=== PATIENT | male | born 1965 | race Caucasian/White ===

== ENCOUNTER → 2016-04-20 | Outpatient (CLI) | payer MEDICARE, MEDICAID ==
[2016-04-20 13:53] LABS: BASO % 0.5 % (0.0-1.0); EOS # 0.1 K/mm3 (0.0-0.50); EOS % 1.7 % (0.0-3.0); LARGE UNSTAINED CELL # 0.1 K/mm3 (0.0-0.4); LARGE UNSTAINED CELL % 1.9 % (0.0-4.0); LYMPH # 1.9 K/mm3 (1.5-4.5); LYMPH % 28.7 % (24.0-44.0); MEAN CORPUSCULAR HEMOGLOBIN 32.5 pg (27.0-33.0); MEAN CORPUSCULAR HGB CONC 33.7 g/dl (32.0-36.5); MEAN CORPUSCULAR VOLUME 96.4 fl (80.0-96.0); MONO # 0.5 K/mm3 (0.0-0.8); MONO % 7.4 % (0.0-5.0); NEUTROPHILS % 59.8 % (36.0-66.0); PLATELET COUNT, AUTOMATED 199 k/mm3 (150-450); RED CELL DISTRIBUTION WIDTH 12.6 % (11.5-14.5); WHITE BLOOD COUNT 6.7 K/mm3 (4.0-10.0)
[2016-04-20 14:11] LABS: ALBUMIN 3.6 GM/DL (3.2-5.2); ALBUMIN/GLOBULIN RATIO 1.06 (1.00-1.93); ALKALINE PHOSPHATASE 63 U/L (45-117); ALT/SGPT 14 U/L (12-78); ANION GAP 7 MEQ/L (8-16); AST/SGOT 10 U/L (15-37); BILIRUBIN,TOTAL 0.3 MG/DL (0.2-1.0); BLOOD UREA NITROGEN 15 MG/DL (7-18); CALCIUM LEVEL 8.9 MG/DL (8.5-10.1); CARBON DIOXIDE LEVEL 31 MEQ/L (21-32); CHLORIDE LEVEL 99 MEQ/L (98-107); CHOLESTEROL LEVEL 133 MG/DL (<200); CREATININE FOR GFR 0.89 MG/DL (0.70-1.30); GLOMERULAR FILTRATION RATE > 60.0 (>56); GLUCOSE, FASTING 83 MG/DL (70-105); POTASSIUM SERUM 4.7 MEQ/L (3.5-5.1); SODIUM LEVEL 137 MEQ/L (136-145); TRIGLYCERIDES LEVEL 66 MG/DL (<150)
== END | disposition home or self-care (01) ==
LOC: M WUC 08:42
PROVIDERS: ATTEND Physician Assistant
DX: D53.9 Nutritional anemia, unspecified (principal); D70.9 Neutropenia, unspecified; E78.2 Mixed hyperlipidemia; E03.9 Hypothyroidism, unspecified; E55.9 Vitamin D deficiency, unspecified

== ENCOUNTER → 2016-06-04 | Outpatient (CLI) | payer MEDICARE, MEDICAID ==
[2016-06-04 18:19] LABS: ALBUMIN 3.5 GM/DL (3.2-5.2); ALBUMIN/GLOBULIN RATIO 1.06 (1.00-1.93); ALKALINE PHOSPHATASE 49 U/L (45-117); ALT/SGPT 10 U/L (12-78); AST/SGOT 11 U/L (15-37); BILIRUBIN,DIRECT < 0.1 MG/DL (0.0-0.2); BILIRUBIN,TOTAL 0.3 MG/DL (0.2-1.0); TOTAL PROTEIN 6.8 GM/DL (6.4-8.2)
== END ==
LOC: M WUC 09:06
PROVIDERS: ATTEND Psychiatry & Neurology Psychiatry
DX: Z51.81 Encounter for therapeutic drug level monitoring (principal); Z79.899 Other long term (current) drug therapy

== ENCOUNTER → 2016-06-11 | Outpatient (CLI) | payer MEDICARE, MEDICAID | LOC: M WUC 08:21 | PROVIDERS: ATTEND Psychiatry & Neurology Psychiatry | DX: Z51.81 Encounter for therapeutic drug level monitoring (principal); Z79.899 Other long term (current) drug therapy ==

== ENCOUNTER → 2016-06-30 | Outpatient (CLI) | payer MEDICARE, MEDICAID | LOC: M WUC 08:27 | PROVIDERS: ATTEND Psychiatry & Neurology Psychiatry | DX: Z51.81 Encounter for therapeutic drug level monitoring (principal); Z79.899 Other long term (current) drug therapy ==

== ENCOUNTER 2017-02-07 18:43 | Emergency (ER) | payer MEDICARE, MEDICAID ==
[~2017-02-07] VITALS: Ht 170.2 cm; Wt 69.1 kg
[2017-02-07] MEDS ORDERED: DIVA500T3 (18:50)
[2017-02-07] MEDS ORDERED: LEVO25TA5 (18:50)
[2017-02-07] MEDS ORDERED: VITA100067 PO (18:50)
[2017-02-07] MEDS ORDERED: BENZ0.5T (18:50)
[2017-02-07] MEDS ORDERED: HALO1TAB29 (18:50)
[2017-02-07] MEDS ORDERED: OXYB5TAB10 (18:50)
[2017-02-07] MEDS ORDERED: FERR325T3 PO (18:50)
[2017-02-07] MEDS ORDERED: SIMV40TA2 (18:50)
[2017-02-07 20:56] LABS: BASO % 0.5 % (0.0-1.0); EOS # 0.1 10^3/uL (0.0-0.50); EOS % 1.5 % (0.0-3.0); IMMATURE GRANULOCYTE % 0.5 % (0-0); LYMPH # 3.2 10^3/uL (1.5-4.5); LYMPH % 37.2 % (24.0-44.0); MEAN CORPUSCULAR HEMOGLOBIN 31.7 pg (27.0-33.0); MEAN CORPUSCULAR VOLUME 93.4 fl (80.0-96.0); MONO % 11.2 % (0.0-5.0); NEUTROPHILS # 4.3 10^3/uL (1.8-7.7); NEUTROPHILS % 49.1 % (36.0-66.0); PLATELET COUNT, AUTOMATED 240 10^3/uL (150-450); RED CELL DISTRIBUTION WIDTH 13.8 % (11.5-14.5); WHITE BLOOD COUNT 8.7 10^3/uL (4.0-10.0)
[2017-02-07 20:59] LABS: SPECIFIC GRAVITY UR AUTO RFX 1.005 (1.002-1.035); SQUAM EPITHELIAL CELL UR AURFX 0 /HPF (0-6)
[2017-02-07 21:14] LABS: ANION GAP 7 MEQ/L (8-16); BLOOD UREA NITROGEN 8 MG/DL (7-18); CALCIUM LEVEL 8.9 MG/DL (8.5-10.1); CARBON DIOXIDE LEVEL 32 MEQ/L (21-32); CHLORIDE LEVEL 97 MEQ/L (98-107); CREATININE FOR GFR 0.84 MG/DL (0.70-1.30); GLOMERULAR FILTRATION RATE > 60.0 (>56); GLUCOSE, FASTING 76 MG/DL (70-105); POTASSIUM SERUM 4.4 MEQ/L (3.5-5.1); SODIUM LEVEL 136 MEQ/L (136-145)
[2017-02-07] MEDS ORDERED: NYST1POW9 TOP (21:36)
[2017-02-07 21:43] VITALS: BP 112/69
--- NOTE | 2017-02-07 21:50 | REPUSA ---
HISTORY: Right hydrocele. COMPARISON: No relevant comparison is available at the time of interpretation. TECHNIQUE: Ultrasound of the bilateral testicles and scrotum was performed. Doppler color flow was pe rformed to evaluate testicular vascularity. SCROTAL ULTRASOUND: Right testicle: 4.5 x 2.1 x 3.0 cm. Normal vascular flow, resistive index 0.53. Small epididymal cyst s. Large right hydrocele. No varicocele. Small calcification of the upper testicular pole may represe nt appendix testis. Left testicle: 4.3 x 2.3 x 2.5 cm. Normal vascular flow, resistive index 0.42. Small epididymal cysts . No hydrocele or varicocele. IMPRESSION: Large right hydrocele.
== END 2017-02-07 21:44 | disposition home or self-care (01) ==
LOC: M ED 18:43
DX: B35.6 Tinea cruris (principal); N43.3 Hydrocele, unspecified; I10 Essential (primary) hypertension; E07.9 Disorder of thyroid, unspecified; F99 Mental disorder, not otherwise specified; Z86.79 Personal history of other diseases of the circulatory system; Z79.899 Other long term (current) drug therapy

== ENCOUNTER → 2017-02-20 | Outpatient (CLI) | payer MEDICARE, MEDICAID ==
[~2017-02-20] MED LIST: BENZ0.5T; DIVA500T3; FERR325T3 PO; HALO1TAB29; LEVO25TA5; NYST1POW9 TOP; OXYB5TAB10; SIMV40TA2; VITA100067 PO
[2017-02-20 09:36] LABS: ALBUMIN 3.5 GM/DL (3.2-5.2); ALBUMIN/GLOBULIN RATIO 1.09 (1.00-1.93); BILIRUBIN,DIRECT 0.1 MG/DL (0.0-0.2); BILIRUBIN,TOTAL 0.3 MG/DL (0.2-1.0); TOTAL PROTEIN 6.7 GM/DL (6.4-8.2)
== END ==
LOC: M WUC 08:05
PROVIDERS: ATTEND Psychiatry & Neurology Psychiatry
DX: Z51.81 Encounter for therapeutic drug level monitoring (principal); Z79.899 Other long term (current) drug therapy

== ENCOUNTER → 2017-03-15 | Outpatient (CLI) | payer MEDICARE, MEDICAID ==
[2017-03-15 08:49] LABS: VALPROIC ACID (DEPAKOTE) 92.5 UG/ML (50.0-100.0)
== END ==
LOC: M LAB 07:23
DX: Z79.899 Other long term (current) drug therapy (principal)
CPT/HCPCS: 80164

== ENCOUNTER → 2017-04-04 | Outpatient (CLI) | payer MEDICARE, MEDICAID ==
[2017-04-04 13:17] LABS: VALPROIC ACID (DEPAKOTE) 86.3 UG/ML (50.0-100.0)
== END ==
LOC: M WUC 08:29
DX: Z79.899 Other long term (current) drug therapy (principal)
CPT/HCPCS: 80164

== ENCOUNTER → 2017-07-25 | Outpatient (CLI) | payer MEDICARE, MEDICAID | LOC: M LRY 14:07 | DX: R05 Cough (principal); F25.9 Schizoaffective disorder, unspecified; R25.9 Unspecified abnormal involuntary movements; Z12.11 Encounter for screening for malignant neoplasm of colon; Z79.899 Other long term (current) drug therapy | CPT/HCPCS: 71046; 83036 ==

== ENCOUNTER → 2017-07-25 | Outpatient (REF) | payer MEDICARE, MEDICAID ==
[2017-07-25 19:10] LABS: ESTIMATED AVERAGE GLUCOSE 108 MG/DL (60-110); HEMOGLOBIN A1c 5.4 %
== END ==
LOC: M SFHCLERA 13:56
DX: F25.9 Schizoaffective disorder, unspecified (principal); R05 Cough; Z12.11 Encounter for screening for malignant neoplasm of colon; Z79.899 Other long term (current) drug therapy
CPT/HCPCS: 83036

== ENCOUNTER → 2017-08-18 | Outpatient (CLI) | payer MEDICARE, MEDICAID | LOC: M WUC 17:08 | DX: M16.12 Unilateral primary osteoarthritis, left hip (principal); M25.552 Pain in left hip | CPT/HCPCS: 73502 ==

== ENCOUNTER 2017-08-30 21:51 | Emergency (ER) | payer MEDICARE, MEDICAID | END 2017-08-30 22:37 | disposition home or self-care (01) | LOC: M ED 21:51 | DX: F43.0 Acute stress reaction (principal); F41.1 Generalized anxiety disorder; F79 Unspecified intellectual disabilities; E78.00 Pure hypercholesterolemia, unspecified; Z72.0 Tobacco use; Z79.899 Other long term (current) drug therapy | CPT/HCPCS: 99284 ==

== ENCOUNTER → 2017-09-01 | Outpatient (CLI) | payer MEDICARE, MEDICAID ==
[2017-09-01 17:48] LABS: PLATELET COUNT, AUTOMATED 260 10^3/uL (150-450)
[2017-09-01 18:06] LABS: ALBUMIN 3.6 GM/DL (3.2-5.2); ALBUMIN/GLOBULIN RATIO 1.13 (1.00-1.93); ALKALINE PHOSPHATASE 52 U/L (45-117); ALT/SGPT 17 U/L (12-78); AST/SGOT 8 U/L (7-37); BILIRUBIN,DIRECT < 0.1 MG/DL (0.0-0.2); BILIRUBIN,TOTAL 0.2 MG/DL (0.2-1.0); TOTAL PROTEIN 6.8 GM/DL (6.4-8.2); VALPROIC ACID (DEPAKOTE) 78.1 UG/ML (50.0-100.0)
== END ==
LOC: M WUC 08:50
DX: Z51.81 Encounter for therapeutic drug level monitoring (principal)
CPT/HCPCS: 80164

== ENCOUNTER → 2017-09-04 | Outpatient (CLI) | payer MEDICARE, MEDICAID ==
[2017-09-05 11:14] LABS: TOTAL 25(OH) VITAMIN D 26.1 NG/ML (30.0-100.0)
== END ==
LOC: M WUC 15:43
DX: E55.9 Vitamin D deficiency, unspecified (principal); Z79.899 Other long term (current) drug therapy
CPT/HCPCS: 82306

== ENCOUNTER 2017-09-15 19:34 | Inpatient (IN) | payer MEDICARE, MEDICAID ==
[2017-09-15 20:49] LABS: HEMATOCRIT 40.6 % (42.0-52.0); MEAN CORPUSCULAR HEMOGLOBIN 32.1 pg (27.0-33.0); MEAN CORPUSCULAR HGB CONC 34.5 g/dl (32.0-36.5); MEAN CORPUSCULAR VOLUME 93.1 fl (80.0-96.0); PLATELET COUNT, AUTOMATED 244 10^3/uL (150-450); RED BLOOD COUNT 4.36 10^6/uL (4.30-6.10); RED CELL DISTRIBUTION WIDTH 13.4 % (11.5-14.5)
[2017-09-15 20:51] LABS: AMPHETAMINES LEVEL URINE NEGATIVE (NEGATIVE); BARBITURATES URINE NEGATIVE (NEGATIVE); BENZODIAZEPINES URINE NEGATIVE (NEGATIVE); CANNABINOIDS URINE NEGATIVE (NEGATIVE); COCAINE METABOLITE URINE NEGATIVE (NEGATIVE); METHADONE URINE NEGATIVE (NEGATIVE); OPIATES URINE NEGATIVE (NEGATIVE); PHENCYCLIDINE URINE NEGATIVE (NEGATIVE)
[2017-09-15] MEDS: oxyBUTYnin 5 MG TAB PO (21:00)
[2017-09-15] MEDS: SIMVASTATIN 40 MG TAB PO (21:00)
[2017-09-15] MEDS ORDERED: DIVALPROEX 500 MG TAB PO (21:00)
[2017-09-15] MEDS: NICOTINE 21MG/24HR 1 EA TRANSDERMAL TD (21:00)
[2017-09-15] MEDS ORDERED: DOCUSATE SODIUM 100 MG CAP PO (21:00)
[2017-09-15] MEDS ORDERED: HALOPERIDOL 10 MG TAB PO (21:00)
[2017-09-15 21:25] LABS: ALBUMIN 3.5 GM/DL (3.2-5.2); ALBUMIN/GLOBULIN RATIO 1.03 (1.00-1.93); ALKALINE PHOSPHATASE 62 U/L (45-117); ALT/SGPT 18 U/L (12-78); ANION GAP 8 MEQ/L (8-16); AST/SGOT 14 U/L (7-37); BILIRUBIN,DIRECT < 0.1 MG/DL (0.0-0.2); BILIRUBIN,TOTAL 0.2 MG/DL (0.2-1.0); BLOOD UREA NITROGEN 13 MG/DL (7-18); CARBON DIOXIDE LEVEL 27 MEQ/L (21-32); CHLORIDE LEVEL 105 MEQ/L (98-107); CREATININE FOR GFR 0.86 MG/DL (0.70-1.30); GLOMERULAR FILTRATION RATE > 60.0 (>56); GLUCOSE, FASTING 144 MG/DL (70-100); POTASSIUM SERUM 4.6 MEQ/L (3.5-5.1); SALICYLATE LEVEL 1.9 MG/DL (5.0-30.0); SODIUM LEVEL 140 MEQ/L (136-145); TOTAL PROTEIN 6.9 GM/DL (6.4-8.2)
[2017-09-15 21:26] LABS: ACETAMINOPHEN LEVEL < 2.0 UG/ML (10.0-30.0); ETHYL ALCOHOL (ETHANOL) < 0.003 % (0.000-0.010)
[2017-09-15] MEDS ORDERED: MOM 30ML SUSPENSION UDC PO (22:30)
[2017-09-15] MEDS: ACETAMINOPHEN TAB 650MG DOSE (2X325MG) PO (23:33)
[2017-09-16] MEDS: LORazepam 1 MG TAB PO ×3 (00:58→15:49)
[2017-09-16] MEDS: DOCUSATE SODIUM 100 MG CAP PO ×3 (01:00→20:16)
[2017-09-16] MEDS: DIVALPROEX 500 MG TAB PO ×3 (01:09→20:16)
[2017-09-16] MEDS: HALOPERIDOL 10 MG TAB PO ×3 (01:09→20:16)
[2017-09-16] MEDS: LEVOTHYROXINE 25MCG TABLET (0.025MG) PO (06:19)
[2017-09-16] MEDS: BENZTROPINE 0.5 MG TAB PO (09:06)
[2017-09-16] MEDS: FERROUS SULFATE 325MG TAB PO (09:06)
[2017-09-16] MEDS: oxyBUTYnin 5 MG TAB PO ×3 (09:06→20:16)
[2017-09-16] MEDS: traZODone 50 MG TAB PO (20:16)
[2017-09-16] MEDS: SIMVASTATIN 40 MG TAB PO (20:16)
[2017-09-16] MEDS: NICOTINE 21MG/24HR 1 EA TRANSDERMAL TD (20:17)
[2017-09-17] MEDS: LEVOTHYROXINE 25MCG TABLET (0.025MG) PO (06:20)
[2017-09-17] MEDS: LORazepam 1 MG TAB PO ×3 (08:29→15:49)
[2017-09-17] MEDS: oxyBUTYnin 5 MG TAB PO ×3 (08:29→20:20)
[2017-09-17] MEDS: DOCUSATE SODIUM 100 MG CAP PO ×2 (08:29→20:20)
[2017-09-17] MEDS: BENZTROPINE 0.5 MG TAB PO (08:29)
[2017-09-17] MEDS: FERROUS SULFATE 325MG TAB PO (08:29)
[2017-09-17] MEDS: DIVALPROEX 500 MG TAB PO ×2 (08:29→20:20)
[2017-09-17] MEDS: HALOPERIDOL 10 MG TAB PO ×2 (08:29→20:20)
[2017-09-17] MEDS: ACETAMINOPHEN TAB 650MG DOSE (2X325MG) PO (12:34)
[2017-09-17] MEDS: SIMVASTATIN 40 MG TAB PO (20:20)
[2017-09-17] MEDS: NICOTINE 21MG/24HR 1 EA TRANSDERMAL TD (20:21)
[2017-09-17] MEDS: MAALOX 30 ML SUSP *UDC PO (20:44)
[2017-09-18] MEDS: LEVOTHYROXINE 25MCG TABLET (0.025MG) PO (06:21)
[2017-09-18] MEDS: DOCUSATE SODIUM 100 MG CAP PO (08:11)
[2017-09-18] MEDS: HALOPERIDOL 10 MG TAB PO (08:11)
[2017-09-18] MEDS: LORazepam 1 MG TAB PO ×2 (08:12)
[2017-09-18] MEDS: BENZTROPINE 0.5 MG TAB PO (08:12)
[2017-09-18] MEDS: oxyBUTYnin 5 MG TAB PO (08:12)
[2017-09-18] MEDS: DIVALPROEX 500 MG TAB PO (08:12)
[2017-09-18] MEDS: FERROUS SULFATE 325MG TAB PO (08:12)
[2017-09-18] MEDS ORDERED: LORazepam 1 MG TAB PO (16:00)
== END 2017-09-18 14:15 | disposition home or self-care (01) | DRG 885 ==
LOC: M ED 19:34 → M ED INP 21:59 → M PSY 22:47
DX: F25.9 Schizoaffective disorder, unspecified (principal); I10 Essential (primary) hypertension; G43.909 Migraine, unspecified, not intractable, without status migrainosus; E03.9 Hypothyroidism, unspecified; H91.93 Unspecified hearing loss, bilateral; F70 Mild intellectual disabilities; E78.5 Hyperlipidemia, unspecified; N43.3 Hydrocele, unspecified; R32 Unspecified urinary incontinence; H26.9 Unspecified cataract; R45.850 Homicidal ideations; Z68.29 Body mass index [BMI] 29.0-29.9, adult; E66.3 Overweight; E55.9 Vitamin D deficiency, unspecified; M70.71 Other bursitis of hip, right hip; D53.9 Nutritional anemia, unspecified; L21.9 Seborrheic dermatitis, unspecified; F17.210 Nicotine dependence, cigarettes, uncomplicated; Z79.899 Other long term (current) drug therapy

== ENCOUNTER 2017-12-20 21:50 | Emergency (ER) | payer MEDICARE, MEDICAID ==
[2017-12-20] MEDS: NORCO, ANEXSIA 5/325MG TABLET (HYDROcodone/ACETAMINOPHEN) PO ×2 (22:16)
== END 2017-12-20 23:30 | disposition home or self-care (01) ==
LOC: M ED 21:50
DX: M79.605 Pain in left leg (principal); E78.70 Disorder of bile acid and cholesterol metabolism, unspecified; E07.9 Disorder of thyroid, unspecified; F17.210 Nicotine dependence, cigarettes, uncomplicated; Z98.890 Other specified postprocedural states
CPT/HCPCS: 73590

== ENCOUNTER → 2018-01-23 | Outpatient (REF) | payer MEDICARE, MEDICAID ==
[2018-01-23 16:46] LABS: HEMATOCRIT 42.3 % (42.0-52.0); HEMOGLOBIN 13.6 g/dl (13.5-17.5); MEAN CORPUSCULAR HEMOGLOBIN 28.6 pg (27.0-33.0); MEAN CORPUSCULAR HGB CONC 32.2 g/dl (32.0-36.5); MEAN CORPUSCULAR VOLUME 88.9 fl (80.0-96.0); PLATELET COUNT, AUTOMATED 396 10^3/uL (150-450); RED BLOOD COUNT 4.76 10^6/uL (4.30-6.10); RED CELL DISTRIBUTION WIDTH 14.7 % (11.5-14.5); WHITE BLOOD COUNT 11.2 10^3/uL (4.0-10.0)
[2018-01-23 16:47] LABS: VALPROIC ACID (DEPAKOTE) 107.3 UG/ML (50.0-100.0)
[2018-01-23 16:58] LABS: ALBUMIN 3.8 GM/DL (3.2-5.2); ALKALINE PHOSPHATASE 72 U/L (45-117); ALT/SGPT 17 U/L (12-78); ANION GAP 7 MEQ/L (8-16); AST/SGOT 10 U/L (7-37); BILIRUBIN,TOTAL 0.2 MG/DL (0.2-1.0); BLOOD UREA NITROGEN 10 MG/DL (7-18); CALCIUM LEVEL 9.1 MG/DL (8.5-10.1); CARBON DIOXIDE LEVEL 27 MEQ/L (21-32); CHLORIDE LEVEL 101 MEQ/L (98-107); CHOLESTEROL LEVEL 146 MG/DL (<200); CHOLESTEROL RISK RATIO 2.654 (<5); CREATININE FOR GFR 0.65 MG/DL (0.70-1.30); GLOMERULAR FILTRATION RATE > 60.0 (>56); GLUCOSE, FASTING 89 MG/DL (70-100); HDL CHOLESTEROL 55 MG/DL (>40); LDL CHOLESTEROL 71 MG/DL (<100); NON-HDL-C 91 MG/DL; SODIUM LEVEL 135 MEQ/L (136-145); TOTAL PROTEIN 7.6 GM/DL (6.4-8.2); TRIGLYCERIDES LEVEL 98 MG/DL (<150)
== END ==
LOC: M SFHCLERA 11:49
DX: E03.9 Hypothyroidism, unspecified (principal); E78.5 Hyperlipidemia, unspecified; F25.9 Schizoaffective disorder, unspecified
CPT/HCPCS: 84443

== ENCOUNTER → 2018-02-19 | Outpatient (CLI) | payer MEDICARE, MEDICAID ==
[2018-02-19 19:36] LABS: VALPROIC ACID (DEPAKOTE) 82.2 UG/ML (50.0-100.0)
== END ==
LOC: M WUC 17:37
DX: Z79.899 Other long term (current) drug therapy (principal)
CPT/HCPCS: 80164

== ENCOUNTER → 2018-04-10 | Outpatient (CLI) | payer MEDICARE, MEDICAID ==
[~2018-04-10] MED LIST changes: +ATIV1TAB7 PO; -BENZ0.5T; +BENZ0.5T PO; +COLA100C5 PO; -DIVA500T3; +DIVA500T94 PO; -HALO1TAB29; +HALO1TAB29 PO; -LEVO25TA5; +LEVO25TA5 PO; +NICO21PAT TD; -OXYB5TAB10; +OXYB5TAB10 PO; +PROHANCE 279.3MG/ML 15ML VIAL (A9576) As Ordered ONE; -SIMV40TA2; +SIMV40TA2 PO; +VITA1CAP25 PO
--- NOTE | 2018-04-10 13:16 | REP ---
MR IAC'S WITHOUT AND WITH CONTRAST: HISTORY: Bilateral sensory neural hearing loss. CONTRAST: ProHance 15 mL. Several punctate areas of increased signal intensity on T2 weighted images are present in the periventricular and subcortical white matter. This represents small vessel ischemic disease. There is no intraparenchymal hemorrhage, infarct, mass or midline shift. There is no abnormal enhancement. The ventricular system and cortical sulci are dilated consistent with minimal volume loss. There is no extracerebral collection. There is no cerebellopontine angle mass. The inner ear structures are normal in appearance. The mastoid air cells are clear. Mucosal thickening is present in the maxillary sinuses. IMPRESSION: 1. Minimal small vessel ischemic disease. 2. Minimal volume loss. Electronically Signed by Jatinder Jorge MD 04/10/2018 01:19 P
== END ==
LOC: M RAD 10:54
PROVIDERS: ATTEND Otolaryngology
DX: H90.3 Sensorineural hearing loss, bilateral (principal)
CPT/HCPCS: 70553; A9576

== ENCOUNTER → 2018-08-18 | Outpatient (CLI) | payer MEDICARE, MEDICAID ==
[~2018-08-18] MED LIST changes: +HALO10TA20 PO; -HALO1TAB29 PO; -PROHANCE 279.3MG/ML 15ML VIAL (A9576) As Ordered ONE
== END ==
LOC: M WUC 13:14
PROVIDERS: ATTEND Psychiatry & Neurology Psychiatry
DX: Z79.899 Other long term (current) drug therapy (principal)

== ENCOUNTER → 2018-08-20 | Outpatient (CLI) | payer MEDICARE, MEDICAID ==
[2018-08-20 09:30] LABS: ALBUMIN 3.6 GM/DL (3.2-5.2); BILIRUBIN,DIRECT 0.1 MG/DL (0.0-0.2); BILIRUBIN,TOTAL 0.3 MG/DL (0.2-1.0); CHOLESTEROL RISK RATIO 3.163 (<5); TOTAL PROTEIN 7.4 GM/DL (6.4-8.2); VALPROIC ACID (DEPAKOTE) 117.4 UG/ML (50.0-100.0)
== END ==
LOC: M WUC 08:07
PROVIDERS: ATTEND Psychiatry & Neurology Psychiatry
DX: Z51.81 Encounter for therapeutic drug level monitoring (principal); Z79.899 Other long term (current) drug therapy

== ENCOUNTER → 2019-02-04 | Outpatient (REF) | payer MEDICARE, MEDICAID ==
[~2019-02-04] MED LIST changes: -BENZ0.5T PO; +BENZ0.5T23 PO; -SIMV40TA2 PO; +SIMV40TA20 PO
[2019-02-04 16:41] LABS: BASO % 0.4 % (0.0-1.0); EOS # 0.1 10^3/uL (0.0-0.5); EOS % 1.6 % (0.0-3.0); HEMATOCRIT 40.8 % (42.0-52.0); HEMOGLOBIN 13.4 g/dl (13.5-17.5); MEAN CORPUSCULAR HEMOGLOBIN 31.3 pg (27.0-33.0); MEAN CORPUSCULAR HGB CONC 32.8 g/dl (32.0-36.5); MEAN CORPUSCULAR VOLUME 95.3 fl (80.0-96.0); MONO # 0.8 10^3/uL (0.0-0.8); MONO % 9.6 % (0.0-5.0); NEUTROPHILS # 4.1 10^3/uL (1.5-8.5); PLATELET COUNT, AUTOMATED 281 10^3/uL (150-450); RED BLOOD COUNT 4.28 10^6/uL (4.30-6.10); WHITE BLOOD COUNT 8.1 10^3/uL (4.0-10.0)
[2019-02-04 16:55] LABS: ALBUMIN 3.6 GM/DL (3.2-5.2); ALT/SGPT 18 U/L (12-78); BILIRUBIN,TOTAL 0.3 MG/DL (0.2-1.0); BLOOD UREA NITROGEN 9 MG/DL (7-18); CALCIUM LEVEL 9.2 MG/DL (8.5-10.1); CARBON DIOXIDE LEVEL 29 MEQ/L (21-32); CHLORIDE LEVEL 100 MEQ/L (98-107); CHOLESTEROL LEVEL 154 MG/DL (<200); CHOLESTEROL RISK RATIO 2.655 (<5); CREATININE FOR GFR 0.69 MG/DL (0.70-1.30); GLOMERULAR FILTRATION RATE > 60.0 (>56); GLUCOSE, FASTING 86 MG/DL (70-100); HDL CHOLESTEROL 58 MG/DL (>40); LDL CHOLESTEROL 73 MG/DL (<100); NON-HDL-C 96 MG/DL; POTASSIUM SERUM 4.6 MEQ/L (3.5-5.1); SODIUM LEVEL 134 MEQ/L (136-145); TOTAL PROTEIN 7.2 GM/DL (6.4-8.2); TRIGLYCERIDES LEVEL 117 MG/DL (<150); VALPROIC ACID (DEPAKOTE) 85.1 UG/ML (50.0-100.0)
[2019-02-04 18:03] LABS: TOTAL 25(OH) VITAMIN D 45.6 NG/ML (30.0-100.0)
[2019-02-04 18:29] LABS: HEMOGLOBIN A1c 5.2 %
== END ==
LOC: M SFHCLERA 12:10
PROVIDERS: ATTEND Family Medicine
DX: F25.9 Schizoaffective disorder, unspecified (principal); E03.9 Hypothyroidism, unspecified; E55.9 Vitamin D deficiency, unspecified; Z79.899 Other long term (current) drug therapy
CPT/HCPCS: 80053; 80061; 80164; 82306; 83036; 84443; 85025; G0463

== ENCOUNTER 2019-05-09 07:50 | Day surgery (SDC) | payer MEDICARE, MEDICAID ==
[~2019-05-09] VITALS: Ht 162.6 cm; Wt 81.8 kg
[~2019-05-09 07:50] MED LIST changes: +INVE156I IM; +NS 1,000 ML IV ONE; +VITA50005 PO
[2019-05-09] MEDS ORDERED: propofoL 200 MG/20 ML VIAL As Ordered ONE (09:27)
[2019-05-09] MEDS ORDERED: LIDOCAINE 2% INJ 100 MG/5 ML SDV (FOR ANES.) As Ordered ONE (09:27)
[2019-05-09] MEDS ORDERED: ePHEDrine SULFATE 25 MG/5 ML(5MG/ML) SYRINGE As Ordered ONE (09:35)
--- NOTE | 2019-05-09 09:44 | ROOR ---
Patient Name: Antonio You Procedure Date: 05/09/2019 9:12 AM Date of : 1965 Age: 54 Room: [facility] Gender: Male Note Status: Finalized Procedure: Colonoscopy Indications: Screening for colorectal malignant neoplasm Providers: Nate AKERS MD Referring MD: Jatinder Broderick DO Requesting Provider: Medicines: Monitored Anesthesia Care Complications: No immediate complications. Procedure: Pre-Anesthesia Assessment: - The heart rate, respiratory rate, oxygen saturations, blood pressure, adequacy of pulmonary ventilation, and response to care were monitored throughout the procedure. The Colonoscope was introduced through the anus and advanced to the cecum, identified by appendiceal orifice and ileocecal valve. The colonoscopy was performed without difficulty. The patient tolerated the procedure well. The quality of the bowel preparation was excellent. Findings: The perianal and digital rectal examinations were normal. Two sessile polyps were found in the splenic flexure and ascending colon. The polyps were diminutive in size. These polyps were removed with a cold snare. Resection and retrieval were complete. Internal hemorrhoids were found during retroflexion. The hemorrhoids were medium-sized. The colon (entire examined portion) was moderately redundant. The exam was otherwise without abnormality on direct and retroflexion views. Impression: - Two diminutive polyps at the splenic flexure and in the ascending colon, removed with a cold snare. Resected and retrieved. - Internal hemorrhoids. - Redundant colon. - The colonoscopy was otherwise normal on direct and retroflexion views. Recommendation: - Repeat colonoscopy in 5 years for surveillance. Nate Akers MD Nate AKERS MD 05/09/2019 9:44:04 AM Electronically signed by Nate AKERS MD Number of Addenda: 0 Note Initiated On: 05/09/2019 9:12 AM Estimated Blood Loss: Estimated blood loss: none.
[2019-05-09 10:19] VITALS: BP 120/59
== END 2019-05-09 10:19 | disposition home or self-care (01) ==
LOC: M OPP 07:50
PROVIDERS: ATTEND Internal Medicine Gastroenterology
DX: Z12.11 Encounter for screening for malignant neoplasm of colon (principal); D12.3 Benign neoplasm of transverse colon; D12.2 Benign neoplasm of ascending colon; K64.8 Other hemorrhoids; Q43.8 Other specified congenital malformations of intestine; I10 Essential (primary) hypertension; E78.5 Hyperlipidemia, unspecified; E03.9 Hypothyroidism, unspecified; D64.9 Anemia, unspecified; F31.9 Bipolar disorder, unspecified; Z92.3 Personal history of irradiation; E55.9 Vitamin D deficiency, unspecified; F79 Unspecified intellectual disabilities; F17.210 Nicotine dependence, cigarettes, uncomplicated; Z79.899 Other long term (current) drug therapy

== ENCOUNTER → 2019-06-14 | Outpatient (CLI) | payer MEDICARE, MEDICAID ==
[~2019-06-14] MED LIST changes: -NS 1,000 ML IV ONE
--- NOTE | 2019-06-14 12:05 | REP ---
SHOULDER: REASON: Shoulder pain, no trauma. COMPARISON: No priors. FINDINGS: Three views of the shoulder were performed. The acromioclavicular and glenohumeral relationships are within normal limits. There is no acute fracture or destructive osseous lesion. There is a calcification seen in the right upper lobe imaged portion of the right lung, likely a calcified granuloma. The appearance of this is unchanged compared to 07/25/2017. Electronically Signed by Jeffrey Dugan DO 06/14/2019 01:55 P
== END ==
LOC: M WUC 11:22
PROVIDERS: ATTEND Physician Assistant
DX: M25.511 Pain in right shoulder (principal); R91.8 Other nonspecific abnormal finding of lung field

== ENCOUNTER → 2020-02-08 | Outpatient (CLI) | payer MEDICARE, MEDICAID ==
[2020-02-08 10:42] LABS: BASO # 0.1 10^3/uL (0.0-0.2); BASO % 0.6 % (0.0-1.0); EOS # 0.1 10^3/uL (0.0-0.5); EOS % 1.2 % (0.0-3.0); HEMOGLOBIN 13.4 g/dl (13.5-17.5); LYMPH # 2.5 10^3/uL (1.5-5.0); LYMPH % 28.9 % (24.0-44.0); MEAN CORPUSCULAR HGB CONC 31.9 g/dl (32.0-36.5); MEAN CORPUSCULAR VOLUME 94.2 fl (80.0-96.0); MONO # 0.8 10^3/uL (0.0-0.8); MONO % 9.4 % (0.0-5.0); NEUTROPHILS # 5.1 10^3/uL (1.5-8.5); NEUTROPHILS % 59.4 % (36.0-66.0); PLATELET COUNT, AUTOMATED 290 10^3/uL (150-450); RED BLOOD COUNT 4.46 10^6/uL (4.30-6.10); WHITE BLOOD COUNT 8.5 10^3/uL (4.0-10.0)
[2020-02-08 11:12] LABS: ALBUMIN 3.6 GM/DL (3.2-5.2); ALT/SGPT 14 U/L (12-78); BILIRUBIN,TOTAL 0.2 MG/DL (0.2-1.0); BLOOD UREA NITROGEN 10 MG/DL (7-18); CALCIUM LEVEL 9.3 MG/DL (8.5-10.1); CARBON DIOXIDE LEVEL 32 MEQ/L (21-32); CHLORIDE LEVEL 103 MEQ/L (98-107); CHOLESTEROL LEVEL 159 MG/DL (<200); CHOLESTEROL RISK RATIO 2.839 (<5); CREATININE FOR GFR 0.72 MG/DL (0.70-1.30); GLOMERULAR FILTRATION RATE > 60.0 (>56); GLUCOSE, FASTING 73 MG/DL (70-100); HDL CHOLESTEROL 56 MG/DL (>40); LDL CHOLESTEROL 78 MG/DL (<100); NON-HDL-C 103 MG/DL; POTASSIUM SERUM 4.9 MEQ/L (3.5-5.1); SODIUM LEVEL 137 MEQ/L (136-145); TOTAL PROTEIN 7.3 GM/DL (6.4-8.2); TRIGLYCERIDES LEVEL 124 MG/DL (<150)
[2020-02-09 10:16] LABS: TOTAL 25(OH) VITAMIN D 44.9 NG/ML (30.0-100.0)
== END ==
LOC: M LAB 10:02
PROVIDERS: ATTEND Family Medicine
DX: E03.9 Hypothyroidism, unspecified (principal); E55.9 Vitamin D deficiency, unspecified; D53.9 Nutritional anemia, unspecified; E78.2 Mixed hyperlipidemia; F25.9 Schizoaffective disorder, unspecified; Z79.899 Other long term (current) drug therapy

== ENCOUNTER 2020-05-12 09:18 | Emergency (ER) | payer MEDICARE, MEDICAID ==
[~2020-05-12] VITALS: Ht 162.6 cm; Wt 77.4 kg
--- NOTE | 2020-05-12 10:43 | REP ---
INDICATION: R testicular swelling. COMPARISON: 09/16/2017. TECHNIQUE: Real-time sonographic evaluation of scrotum and contents performed. FINDINGS: The testicles are normal in size and echotexture, right testicle measuring 5.2 x 2.1 x 2.8 cm left testicle 4.4 x 3.1 x 2.7 cm. There is no testicular mass or torsion, blood flow is seen in each testicle with duplex Doppler evaluation. On the right the epididymis is not visualized. There is a very large fluid collection containing internal debris which measures 12.8 x 6.0 x 11.0 cm. This could represent a large complex hydrocele or a large complex cyst of the epididymis. On the left there is a small hydrocele. There is a 3 mm cystic structure along the head of the epididymis. IMPRESSION: No testicular mass or torsion. Large fluid collection in the right scrotum containing internal debris represents either large complex hydrocele or large complex cyst of the epididymis. <Electronically signed by Zach Guzmán > 05/12/20 0531
[2020-05-12] MEDS ORDERED: CITA20TA6 PO (11:49)
[2020-05-12] MEDS ORDERED: RISP-8 PO (11:49)
[2020-05-12 11:53] LABS: ALBUMIN 3.7 GM/DL (3.2-5.2); ALT/SGPT 15 U/L (12-78); BILIRUBIN,DIRECT < 0.1 MG/DL (0.0-0.2); BILIRUBIN,TOTAL 0.3 MG/DL (0.2-1.0); BLOOD UREA NITROGEN 9 MG/DL (7-18); CALCIUM LEVEL 9.4 MG/DL (8.5-10.1); CARBON DIOXIDE LEVEL 31 MEQ/L (21-32); CHLORIDE LEVEL 101 MEQ/L (98-107); CREATININE FOR GFR 0.63 MG/DL (0.70-1.30); GLOMERULAR FILTRATION RATE > 60.0 (>56); GLUCOSE, FASTING 88 MG/DL (70-100); LIPASE 48 U/L (73-393); POTASSIUM SERUM 5.3 MEQ/L (3.5-5.1); SODIUM LEVEL 134 MEQ/L (136-145); TOTAL PROTEIN 7.3 GM/DL (6.4-8.2)
[2020-05-12 12:02] LABS: BASO % 0.5 % (0.0-1.0); EOS # 0.1 10^3/uL (0.0-0.5); EOS % 1.7 % (0.0-3.0); HEMATOCRIT 43.4 % (42.0-52.0); HEMOGLOBIN 14.3 g/dl (13.5-17.5); LYMPH # 2.8 10^3/uL (1.5-5.0); LYMPH % 35.2 % (24.0-44.0); MEAN CORPUSCULAR HEMOGLOBIN 30.8 pg (27.0-33.0); MEAN CORPUSCULAR HGB CONC 32.9 g/dl (32.0-36.5); MEAN CORPUSCULAR VOLUME 93.5 fl (80.0-96.0); MONO # 0.6 10^3/uL (0.0-0.8); MONO % 7.8 % (2.0-8.0); NEUTROPHILS # 4.4 10^3/uL (1.5-8.5); NEUTROPHILS % 54.6 % (36.0-66.0); PLATELET COUNT, AUTOMATED 254 10^3/uL (150-450); RED BLOOD COUNT 4.64 10^6/uL (4.30-6.10); WHITE BLOOD COUNT 8.1 10^3/uL (4.0-10.0)
--- NOTE | 2020-05-12 12:13 | REP ---
INDICATION: r/o hernia COMPARISON: Scrotal ultrasound dated 05/12/2020. TECHNIQUE: Grayscale and color evaluation using curved array and linear high-frequency transducer is.. FINDINGS: There is a fluid collection extending from the right groin into the scrotum. There is no evidence for obvious mesenteric fat or bowel herniation. IMPRESSION: Fluid collection again identified extending between right groin and scrotum. <Electronically signed by Keyon Leach > 05/12/20 [id number]
[2020-05-12] MEDS ORDERED: BACT800T5 PO (14:06)
[2020-05-12] MEDS ORDERED: SOD POLYSTYRENE SULFONATE SUSP 15 GM/60 ML UD PO ONE (14:35)
[2020-05-12 14:37] VITALS: BP 147/83
[2020-05-12 15:21] LABS: CHLAMYDIA DNA AMPLIFICATION NEGATIVE (NEGATIVE); GC DNA AMPLIFICATION NEGATIVE (NEGATIVE)
--- NOTE | 2020-05-13 03:24 | ECGEPIP ---
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
--- NOTE | 2020-05-14 08:15 | ED PDOC ---
Post-Departure Follow-Up pelvic nd scrotal us faxed to dr waggoner and cam for fu Mayuri Dumont MD May 14, 2020 08:15
== END 2020-05-12 14:48 | disposition home or self-care (01) ==
LOC: M ED 09:18
DX: N43.3 Hydrocele, unspecified (principal); E78.5 Hyperlipidemia, unspecified; E03.9 Hypothyroidism, unspecified; F25.0 Schizoaffective disorder, bipolar type; F17.200 Nicotine dependence, unspecified, uncomplicated

== ENCOUNTER → 2020-05-27 | Outpatient (CLI) | payer MEDICARE, MEDICAID ==
[~2020-05-27] MED LIST changes: +BACT800T5 PO; +CITA20TA6 PO; +OMEP1CAP73 PO; +RISP-8 PO
[2020-05-27 07:56] LABS: HEMATOCRIT 41.7 % (42.0-52.0); MEAN CORPUSCULAR HEMOGLOBIN 31.5 pg (27.0-33.0); MEAN CORPUSCULAR HGB CONC 33.6 g/dl (32.0-36.5); MEAN CORPUSCULAR VOLUME 93.7 fl (80.0-96.0); PLATELET COUNT, AUTOMATED 272 10^3/uL (150-450); RED BLOOD COUNT 4.45 10^6/uL (4.30-6.10); WHITE BLOOD COUNT 7.1 10^3/uL (4.0-10.0)
[2020-05-27 08:16] LABS: INR 1.04; PROTHROMBIN TIME 13.8 SECONDS (12.5-14.3)
--- NOTE | 2020-05-27 08:16 | REP ---
INDICATION: HYDROCELE, UNSPECIFIED; PREOP TESTING. COMPARISON: 07/25/2017 TECHNIQUE: Upright PA and lateral chest. FINDINGS: The lung vitale are clear. Cardiac size is normal. The minna, mediastinum and skeletal structures are unremarkable. IMPRESSION: Essentially negative PA and lateral chest There is no interval change. <Electronically signed by Zach Prescott > 05/27/20 [id number]
[2020-05-27 08:17] LABS: BLOOD UREA NITROGEN 9 MG/DL (7-18); CARBON DIOXIDE LEVEL 29 MEQ/L (21-32); CHLORIDE LEVEL 104 MEQ/L (98-107); CREATININE FOR GFR 0.68 MG/DL (0.70-1.30); GLOMERULAR FILTRATION RATE > 60.0 (>56); GLUCOSE, FASTING 85 MG/DL (70-100); PARTIAL THROMBOPLASTIN TIME 30.1 SECONDS (24.2-38.5); SODIUM LEVEL 137 MEQ/L (136-145)
--- NOTE | 2020-05-27 09:35 | ECGEPIP ---
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
== END ==
LOC: M LAB 07:20
PROVIDERS: ATTEND Nurse Practitioner Family
DX: Z01.818 Encounter for other preprocedural examination (principal); N43.3 Hydrocele, unspecified
CPT/HCPCS: 36415; 71046; 80048; 85027; 85610; 85730; 93005; G0463

== ENCOUNTER → 2020-06-07 | Outpatient (CLI) | payer MEDICARE, MEDICAID | LOC: M LABSMTC 10:25 | PROVIDERS: ATTEND Anesthesiology | DX: Z01.812 Encounter for preprocedural laboratory examination (principal) ==

== ENCOUNTER 2020-06-11 12:42 | Day surgery (SDC) | payer MEDICARE, MEDICAID ==
[~2020-06-11] VITALS: Ht 157.5 cm; Wt 75.2 kg
[~2020-06-11 12:42] MED LIST changes: +LR 1,000 ML IV ONE; +ceFAZolin SOD 2 GM in IV 1 EA IV ONE
[2020-06-11] MEDS ORDERED: ONDANSETRON 4MG/2ML VIAL As Ordered ONE (13:30)
[2020-06-11] MEDS ORDERED: LIDOCAINE 2% 100MG/5ML SDV (FOR ANES.) As Ordered ONE (13:30)
[2020-06-11] MEDS ORDERED: KETOROLAC 60MG 2ML VIAL As Ordered ONE (13:30)
[2020-06-11] MEDS ORDERED: ACETAMINOPHEN 1000MG 100ML IV BTL (OFIRMEV) (J0131 PER 10MG) As Ordered ONE (13:30)
[2020-06-11] MEDS ORDERED: dexameTHASONE 4 MG/ML 1ML VIAL (J1100 PER 1MG) As Ordered ONE (13:30)
[2020-06-11] MEDS ORDERED: propofoL 200 MG/20 ML VIAL As Ordered ONE (13:30)
[2020-06-11] MEDS ORDERED: fentaNYL 100 MCG/2 ML INJECTION (J3010) As Ordered ONE (13:31)
[2020-06-11] MEDS ORDERED: MIDAZOLAM INJ 2MG/2ML VIAL (J2250 PER 1MG) As Ordered ONE (13:31)
[2020-06-11] MEDS ORDERED: BUPIVACAINE HCL 0.25% 30ML VIAL As Ordered ONE (14:08)
[2020-06-11] MEDS ORDERED: BACITRACIN PWD 50,000 UNITS VIAL As Ordered ONE (14:08)
[2020-06-11] MEDS ORDERED: ePHEDrine SULFATE 25 MG/5 ML(5MG/ML) SYRINGE As Ordered ONE (15:05)
[2020-06-11] MEDS ORDERED: BACITRACIN OINTMENT 30GM TUBE As Ordered ONE (15:06)
--- NOTE | 2020-06-11 15:36 | ROOPDOC ---
[facility] Report Of Operation Report of Operation DATE OF PROCEDURE: 06/11/20 PREPROCEDURE DIAGNOSES: Right hydrocele POSTPROCEDURE DIAGNOSES: Same PROCEDURE: Right hydrocelectomy SURGEON: Betsy Fitzgerald MD PIPE CHIPPER: None ANESTHESIA: Gen. and local ESTIMATED BLOOD LOSS: Approximately 5 mL. COMPLICATIONS: None PROCEDURE NOTE: The patient is a 55-year-old developly delayed individual who has had a right hydrocele which she wanted removed. He was seen in the office by Glen REED and scheduled for surgical management. I discussed all different options, alternatives, risks, and benefits and informed consent was obtained in both verbal and written form. DESCRIPTION OF PROCEDURE: The patient was brought into the operating room and was placed supine on a padded operating table. Preoperative antibiotics were given and general anesthesia was induced. He was then prepped and draped in usual fashion. A vertical incision was made over the right hemiscrotum. Once Tunica vaginalis was reached this was opened and a large hydrocele was drained. The tunica vaginalis was then completely opened and the testicle was delivered. The tunica vaginalis was then closed behind the testicle using 2-0 chromic suture. The testicle was then placed back in the scrotal sac in the sutures. Patient tolerated the procedure well was returned to the recovery room in stable condition. BETSY FITZGERALD MD Jun 11, 2020 15:36
[2020-06-11 16:20] VITALS: BP 136/73
== END 2020-06-11 16:20 | disposition home or self-care (01) ==
LOC: M SDC 12:42
PROVIDERS: ATTEND Specialist
DX: N43.3 Hydrocele, unspecified (principal); I10 Essential (primary) hypertension; F79 Unspecified intellectual disabilities; F17.218 Nicotine dependence, cigarettes, with other nicotine-induced disorders; E03.9 Hypothyroidism, unspecified; E78.5 Hyperlipidemia, unspecified; E55.9 Vitamin D deficiency, unspecified; G40.909 Epilepsy, unspecified, not intractable, without status epilepticus; Z79.899 Other long term (current) drug therapy
CPT/HCPCS: 55040; J0131; J0690; J1100; J1885; J2250; J2405; J3010

== ENCOUNTER → 2020-12-08 | Outpatient (REF) | payer MEDICARE, MEDICAID ==
[~2020-12-08] MED LIST changes: +ERGO500029 PO; -LR 1,000 ML IV ONE; -VITA50005 PO; -ceFAZolin SOD 2 GM in IV 1 EA IV ONE
== END ==
LOC: M SFHCLERA 15:36
PROVIDERS: ATTEND Family Medicine
DX: R32 Unspecified urinary incontinence (principal)
CPT/HCPCS: 81002; 87086; G0463

== ENCOUNTER → 2021-02-22 | Outpatient (CLI) | payer MEDICARE, MEDICAID ==
--- NOTE | 2021-02-22 14:47 | REP ---
INDICATION: LUNG CA SCREENING COMPARISON: None. TECHNIQUE: Axial noncontrast images from the thoracic inlet to the upper abdomen using low-dose lung screening technique (LDCT). FINDINGS: Lung vitale demonstrate chronic appearing interstitial changes along with few scattered primarily calcified nodules measuring up to 3 mm. No acute consolidation, suspicious nodule or mass. No effusion. No pneumothorax. Tracheobronchial tree is patent. Mediastinum is grossly unremarkable. IMPRESSION: Lung-RADS category 2. Findings most suggestive of chronic granulomatous disease. Management recommendations include annual low-dose CT surveillance. <Electronically signed by Keyon Leach > 02/22/21 [id number]
== END ==
LOC: M RAD 13:16
PROVIDERS: ATTEND Family Medicine
DX: Z12.2 Encounter for screening for malignant neoplasm of respiratory organs (principal)

== ENCOUNTER → 2021-04-20 | Outpatient (CLI) | payer MEDICARE, MEDICAID ==
[2021-04-20 13:42] LABS: BASO % 0.5 % (0.0-1.0); EOS # 0.1 10^3/uL (0.0-0.5); EOS % 1.5 % (0.0-3.0); HEMATOCRIT 38.2 % (42.0-52.0); HEMOGLOBIN 12.8 g/dl (13.5-17.5); LYMPH # 2.7 10^3/uL (1.5-5.0); MEAN CORPUSCULAR HEMOGLOBIN 31.9 pg (27.0-33.0); MEAN CORPUSCULAR HGB CONC 33.5 g/dl (32.0-36.5); MEAN CORPUSCULAR VOLUME 95.3 fl (80.0-96.0); MONO # 0.6 10^3/uL (0.0-0.8); MONO % 8.4 % (2.0-8.0); NEUTROPHILS % 53.3 % (36.0-66.0); PLATELET COUNT, AUTOMATED 253 10^3/uL (150-450); RED BLOOD COUNT 4.01 10^6/uL (4.30-6.10); WHITE BLOOD COUNT 7.5 10^3/uL (4.0-10.0)
[2021-04-20 14:39] LABS: ALBUMIN 3.2 GM/DL (3.2-5.2); ALT/SGPT 12 U/L (12-78); BILIRUBIN,TOTAL 0.2 MG/DL (0.2-1.0); BLOOD UREA NITROGEN 12 MG/DL (7-18); CALCIUM LEVEL 8.9 MG/DL (8.5-10.1); CARBON DIOXIDE LEVEL 29 MEQ/L (21-32); CHLORIDE LEVEL 99 MEQ/L (98-107); CHOLESTEROL LEVEL 142 MG/DL (<200); CHOLESTEROL RISK RATIO 2.218 (<5); CREATININE FOR GFR 0.62 MG/DL (0.70-1.30); GLOMERULAR FILTRATION RATE > 60.0 (>56); GLUCOSE, FASTING 101 MG/DL (70-100); HDL CHOLESTEROL 64 MG/DL (>40); LDL CHOLESTEROL 64 MG/DL (<100); NON-HDL-C 78 MG/DL; POTASSIUM SERUM 4.7 MEQ/L (3.5-5.1); SODIUM LEVEL 135 MEQ/L (136-145); THYROID STIMULATING HORMONE 0.827 uIU/ML (0.358-3.740); TOTAL PROTEIN 6.3 GM/DL (6.4-8.2); TRIGLYCERIDES LEVEL 71 MG/DL (<150)
[2021-04-20 14:50] LABS: HEMOGLOBIN A1c 5.3 %
[2021-04-20 16:49] LABS: TOTAL 25(OH) VITAMIN D 42.2 NG/ML (30.0-100.0)
== END ==
LOC: M LAB 13:16
PROVIDERS: ATTEND Family Medicine
DX: Z13.1 Encounter for screening for diabetes mellitus (principal); E78.00 Pure hypercholesterolemia, unspecified; Z12.5 Encounter for screening for malignant neoplasm of prostate
CPT/HCPCS: 36415; 80053; 80061; 82306; 83036; 84443; 85025; G0103

== ENCOUNTER → 2021-05-22 | Outpatient (CLI) | payer MEDICARE, MEDICAID | LOC: M LAB 10:39 | PROVIDERS: ATTEND Nurse Practitioner Women's Health | DX: R97.20 Elevated prostate specific antigen [PSA] (principal) ==

== ENCOUNTER → 2021-12-20 | Outpatient (CLI) | payer MEDICARE, MEDICAID | LOC: M LAB 09:15 | PROVIDERS: ATTEND Nurse Practitioner Women's Health | DX: R97.20 Elevated prostate specific antigen [PSA] (principal) ==

== ENCOUNTER → 2022-03-03 | Outpatient (CLI) | payer MEDICARE, MEDICAID ==
[2022-03-03 08:58] LABS: BASO % 0.6 % (0.0-1.0); EOS # 0.1 10^3/uL (0.0-0.5); EOS % 1.2 % (0.0-3.0); LYMPH # 1.7 10^3/uL (1.5-5.0); LYMPH % 32.9 % (24.0-44.0); MEAN CORPUSCULAR HEMOGLOBIN 31.9 pg (27.0-33.0); MEAN CORPUSCULAR HGB CONC 33.3 g/dl (32.0-36.5); MEAN CORPUSCULAR VOLUME 95.8 fl (80.0-96.0); MONO # 0.6 10^3/uL (0.0-0.8); MONO % 12.4 % (2.0-8.0); NEUTROPHILS # 2.6 10^3/uL (1.5-8.5); NEUTROPHILS % 52.7 % (36.0-66.0); PLATELET COUNT, AUTOMATED 245 10^3/uL (150-450); RED BLOOD COUNT 4.07 10^6/uL (4.30-6.10)
[2022-03-03 09:28] LABS: IRON (FE) 61 UG/DL (65-175); PERCENT SATURATION 20.6 % (19.7-50.0); TOTAL IRON BINDING CAPACITY 296 UG/DL (250-425)
[2022-03-03 09:29] LABS: ALBUMIN 3.5 G/DL (3.2-5.2); ALKALINE PHOSPHATASE 64 U/L (46-116); ALT/SGPT < 9 U/L (7.0-40); AST/SGOT 15 U/L (<34); BILIRUBIN,TOTAL 0.4 MG/DL (0.3-1.2); BLOOD UREA NITROGEN 9 MG/DL (9-23); CALCIUM LEVEL 9.2 MG/DL (8.5-10.1); CARBON DIOXIDE LEVEL 28 MMOL/L (20-31); CHLORIDE LEVEL 98 MMOL/L (98-107); CHOLESTEROL LEVEL 130 MG/DL (<200); CHOLESTEROL RISK RATIO 2.07 (<5); CREATININE FOR GFR 0.66 MG/DL (0.70-1.30); GLOMERULAR FILTRATION RATE > 60.0 (>56); GLUCOSE, FASTING 80 MG/DL (60-100); HDL CHOLESTEROL 62.7 MG/DL (>40); LDL CHOLESTEROL 56.9 MG/DL (<100); NON-HDL-C 67 MG/DL; POTASSIUM SERUM 5.1 MMOL/L (3.5-5.1); SODIUM LEVEL 132 MMOL/L (136-145); THYROID STIMULATING HORMONE 1.315 uIU/ML (0.55-4.78); TOTAL PROTEIN 6.8 G/DL (5.7-8.2); TRIGLYCERIDES LEVEL 52 MG/DL (<150)
== END ==
LOC: M LAB 07:54
PROVIDERS: ATTEND Family Medicine
DX: E03.9 Hypothyroidism, unspecified (principal); E78.2 Mixed hyperlipidemia; D61.9 Aplastic anemia, unspecified

== ENCOUNTER 2022-03-18 08:09 | Emergency (ER) | payer MEDICARE, MEDICAID ==
[~2022-03-18] VITALS: Ht 160 cm; Wt 62.3 kg
[2022-03-18 08:10] VITALS: BP 110/54
[2022-03-18] MEDS ORDERED: ROLLMIS8 XX (10:09)
== END 2022-03-18 10:32 | disposition home or self-care (01) ==
LOC: M ED 08:09
DX: S83.92XA Sprain of unspecified site of left knee, initial encounter (principal); M25.462 Effusion, left knee; X50.0XXA Overexertion from strenuous movement or load, initial encounter; Y92.009 Unspecified place in unspecified non-institutional (private) residence as the place of occurrence of the external cause; M17.12 Unilateral primary osteoarthritis, left knee; Z79.890 Hormone replacement therapy; Z79.899 Other long term (current) drug therapy

== ENCOUNTER → 2022-03-24 | Outpatient (CLI) | payer MEDICARE, MEDICAID ==
[~2022-03-24] MED LIST changes: +ROLLMIS8 XX
== END ==
LOC: M SOG 08:07
PROVIDERS: ATTEND Orthopaedic Surgery Adult Reconstructive Orthopaedic Surgery
DX: M25.562 Pain in left knee (principal)

== ENCOUNTER → 2022-04-03 | Outpatient (CLI) | payer MEDICARE, MEDICAID | LOC: M RAD 14:15 | PROVIDERS: ATTEND Family Medicine | DX: Z87.891 Personal history of nicotine dependence (principal) ==

== ENCOUNTER → 2022-07-14 | Outpatient (CLI) | payer MEDICARE, MEDICAID ==
[~2022-07-14] MED LIST changes: +BENZ0.5T2 PO; -BENZ0.5T23 PO; +ISOVUE-370 76% 100ML VIAL As Ordered ONE
== END ==
LOC: M RAD 09:32
PROVIDERS: ATTEND Family Medicine
DX: R63.4 Abnormal weight loss (principal)
CPT/HCPCS: 74177; Q9967

== ENCOUNTER → 2022-08-02 | Outpatient (CLI) | payer MEDICARE, MEDICAID ==
[~2022-08-02] MED LIST changes: -ISOVUE-370 76% 100ML VIAL As Ordered ONE
[2022-08-02 08:34] LABS: BASO % 0.6 % (0.0-1.0); EOS # 0.1 10^3/uL (0.0-0.5); EOS % 1.6 % (0.0-3.0); HEMATOCRIT 37.9 % (42.0-52.0); HEMOGLOBIN 12.9 g/dl (13.5-17.5); LYMPH # 1.8 10^3/uL (1.5-5.0); MEAN CORPUSCULAR HEMOGLOBIN 31.8 pg (27.0-33.0); MEAN CORPUSCULAR VOLUME 93.3 fl (80.0-96.0); MONO # 0.6 10^3/uL (0.0-0.8); MONO % 12.1 % (2.0-8.0); NEUTROPHILS # 2.4 10^3/uL (1.5-8.5); NEUTROPHILS % 48.3 % (36.0-66.0); PLATELET COUNT, AUTOMATED 231 10^3/uL (150-450); RED BLOOD COUNT 4.06 10^6/uL (4.30-6.10); WHITE BLOOD COUNT 4.9 10^3/uL (4.0-10.0)
[2022-08-02 08:53] LABS: ERYTHROCYTE SEDIMENTATION RATE 5 mm/hr (0-20)
[2022-08-02 09:05] LABS: IRON (FE) 95 UG/DL (65-175); PERCENT SATURATION 32.2 % (19.7-50.0); TOTAL IRON BINDING CAPACITY 295 UG/DL (250-425)
[2022-08-02 09:06] LABS: ALBUMIN 3.6 G/DL (3.2-5.2); ALKALINE PHOSPHATASE 72 U/L (46-116); ALT/SGPT 10 U/L (7.0-40); AST/SGOT 16 U/L (<34); BILIRUBIN,TOTAL 0.4 MG/DL (0.3-1.2); BLOOD UREA NITROGEN 9 MG/DL (9-23); C REACTIVE PROTEIN QUANTITATIV < 0.40 MG/DL (<1.0); CALCIUM LEVEL 8.7 MG/DL (8.5-10.1); CARBON DIOXIDE LEVEL 31 MMOL/L (20-31); CHLORIDE LEVEL 96 MMOL/L (98-107); CHOLESTEROL LEVEL 139 MG/DL (<200); CREATININE FOR GFR 0.63 MG/DL (0.70-1.30); FERRITIN 114.6 NG/ML (10.5-307.3); GLOMERULAR FILTRATION RATE > 60.0 (>56); GLUCOSE, FASTING 84 MG/DL (60-100); HDL CHOLESTEROL 73.1 MG/DL (>40); LDL CHOLESTEROL 55.5 MG/DL (<100); NON-HDL-C 65.9 MG/DL; POTASSIUM SERUM 5.1 MMOL/L (3.5-5.1); SODIUM LEVEL 131 MMOL/L (136-145); TOTAL PROTEIN 6.8 G/DL (5.7-8.2); TRIGLYCERIDES LEVEL 52 MG/DL (<150)
[2022-08-02 09:07] LABS: THYROID STIMULATING HORMONE 2.509 uIU/ML (0.55-4.78)
[2022-08-02 09:08] LABS: FOLATE 15.61 NG/ML (>5.4); TOTAL 25(OH) VITAMIN D 35.2 NG/ML (20.0-100.0); VITAMIN B12 LEVEL 547 PG/ML (211-911)
[2022-08-02 09:28] LABS: HEMOGLOBIN A1c 5.2 % (4.0-6.0)
[2022-08-02 09:31] LABS: HIV 1&2 SCREEN NEGATIVE (NEGATIVE)
[2022-08-02 09:39] LABS: HEPATITIS C VIRUS ABY INDEX 0.1 INDEX (<0.8)
== END ==
LOC: M LAB 07:52
PROVIDERS: ATTEND Family Medicine
DX: R63.4 Abnormal weight loss (principal)

== ENCOUNTER → 2022-10-29 | Outpatient (CLI) | payer MEDICARE, MEDICAID ==
[2022-10-29 09:20] LABS: APPEARANCE, URINE CLEAR (CLEAR); BACTERIA, URINE AUTO NEGATIVE (NEGATIVE); BILIRUBIN, URINE AUTO NEGATIVE (NEGATIVE); BLOOD, URINE BLOOD NEGATIVE (NEGATIVE); COLOR, URINE YELLOW (YELLOW); GLUCOSE, URINE (UA) AUTO NEGATIVE (NEGATIVE); KETONE, URINE AUTO NEGATIVE (NEGATIVE); LEUKOCYTE ESTERASE, URINE AUTO NEGATIVE (NEGATIVE); NITRITE, URINE AUTO NEGATIVE (NEGATIVE); PROTEIN, URINE AUTO NEGATIVE (NEGATIVE); RBC, URINE AUTO 1 /HPF (0-3); SPECIFIC GRAVITY URINE AUTO 1.009 (1.002-1.035); SQUAMOUS EPITHELIAL CELL UR AU 0 /HPF (0-6); UROBILINOGEN, URINE AUTO 0.2 mg/dL (0.0-2.0); WBC, URINE AUTO 0 /HPF (0-3)
[2022-10-29 09:33] LABS: OSMOLALITY URINE 348 MOSM/KG (50-1400)
[2022-10-29 09:36] LABS: SODIUM,RANDOM URINE 65 MMOL/L
[2022-10-29 09:41] LABS: OSMOLALITY SERUM 272 MOSM/KG (275-295)
[2022-10-29 09:46] LABS: BLOOD UREA NITROGEN 9 MG/DL (9-23); CALCIUM LEVEL 9.2 MG/DL (8.5-10.1); CARBON DIOXIDE LEVEL 31 MMOL/L (20-31); CHLORIDE LEVEL 98 MMOL/L (98-107); CORTISOL AM 14.7 UG/DL (4.3-22.4); CREATININE FOR GFR 0.58 MG/DL (0.70-1.30); GLOMERULAR FILTRATION RATE > 60.0 (>56); GLUCOSE, FASTING 83 MG/DL (60-100); POTASSIUM SERUM 4.9 MMOL/L (3.5-5.1); SODIUM LEVEL 131 MMOL/L (136-145)
[2022-10-29 09:48] LABS: CREATININE,RANDOM URINE 53.3 MG/DL
== END ==
LOC: M LAB 08:25
PROVIDERS: ATTEND Family Medicine
DX: E87.1 Hypo-osmolality and hyponatremia (principal)

== ENCOUNTER 2022-11-24 08:58 | Day surgery (SDC) | payer MEDICARE, MEDICAID ==
[~2022-11-24] VITALS: Ht 165.1 cm; Wt 64.4 kg
[~2022-11-24 08:58] MED LIST changes: +CELE20TA PO; +DRIS50003 PO; +FLOM0.4C39 PO; +NS 1,000 ML IV ONE
[2022-11-24] MEDS ORDERED: fentaNYL 100 MCG/2 ML INJECTION As Ordered ONE (10:11)
[2022-11-24] MEDS ORDERED: LIDOCAINE 2% 100MG/5ML SDV (FOR ANES.) As Ordered ONE (10:12)
[2022-11-24] MEDS ORDERED: propofoL 200 MG/20 ML VIAL As Ordered ONE (10:12)
[2022-11-24 10:47] VITALS: TEMP 96.7
[2022-11-24 11:04] VITALS: BP 107/54; O2SAT 97
== END 2022-11-24 11:23 | disposition home or self-care (01) ==
LOC: M OPP 08:58
PROVIDERS: ATTEND Internal Medicine Gastroenterology
DX: R63.4 Abnormal weight loss (principal); Q43.8 Other specified congenital malformations of intestine; I10 Essential (primary) hypertension; E03.9 Hypothyroidism, unspecified; E78.5 Hyperlipidemia, unspecified; D53.9 Nutritional anemia, unspecified; F17.200 Nicotine dependence, unspecified, uncomplicated; F25.9 Schizoaffective disorder, unspecified; F79 Unspecified intellectual disabilities
CPT/HCPCS: 43235; 45378; J3010

== ENCOUNTER 2023-04-06 18:14 | Emergency (ER) | payer MEDICARE, MEDICAID ==
[~2023-04-06] VITALS: Ht 162.6 cm; Wt 70.2 kg
[~2023-04-06 18:14] MED LIST changes: -NS 1,000 ML IV ONE; -OXYB5TAB10 PO; +OXYB5TAB11 PO; +RISP-105 PO; -RISP-8 PO
[2023-04-06 18:16] VITALS: BP 124/65; TEMP 97.6; O2SAT 100
== END 2023-04-06 19:28 | disposition home or self-care (01) ==
LOC: M ED 18:14
DX: T18.9XXA Foreign body of alimentary tract, part unspecified, initial encounter (principal); R11.10 Vomiting, unspecified; F17.200 Nicotine dependence, unspecified, uncomplicated; Z79.899 Other long term (current) drug therapy

== ENCOUNTER → 2023-05-17 | Outpatient (CLI) | payer MEDICARE, MEDICAID ==
[~2023-05-17] MED LIST changes: +INVE234I IM; +LORA1TAB23 PO; +OMEP40CA5 PO; +OXYB15TA14 PO; -OXYB5TAB11 PO; +OXYB5TAB14 PO
== END ==
LOC: M RAD 12:28
PROVIDERS: ATTEND Family Medicine
DX: Z87.891 Personal history of nicotine dependence (principal)

== ENCOUNTER 2023-05-24 09:51 | Day surgery (SDC) | payer MEDICARE, MEDICAID ==
[~2023-05-24] VITALS: Ht 160 cm; Wt 67.6 kg
[~2023-05-24 09:51] MED LIST changes: +NS 1,000 ML IV ONE
[2023-05-24] MEDS ORDERED: LIDOCAINE 2% 100MG/5ML SDV (FOR ANES.) As Ordered ONE (10:38)
[2023-05-24] MEDS ORDERED: GLYCOPYRROLATE INJ 0.2 MG/ML 2 ML VIAL As Ordered ONE (10:38)
[2023-05-24] MEDS ORDERED: propofoL 200 MG/20 ML VIAL As Ordered ONE (10:38)
[2023-05-24 12:19] VITALS: BP 135/67; O2SAT 96
== END 2023-05-24 12:31 | disposition home or self-care (01) ==
LOC: M OPP 09:51
PROVIDERS: ATTEND Internal Medicine Gastroenterology
DX: Z86.010 Personal history of colon polyps (principal); K64.8 Other hemorrhoids; F17.200 Nicotine dependence, unspecified, uncomplicated; E03.9 Hypothyroidism, unspecified; Z79.02 Long term (current) use of antithrombotics/antiplatelets; Z79.890 Hormone replacement therapy; Z79.83 Long term (current) use of bisphosphonates; Z79.899 Other long term (current) drug therapy

== ENCOUNTER → 2023-09-26 | Outpatient (CLI) | payer MEDICARE, MEDICAID ==
[~2023-09-26] MED LIST changes: -NS 1,000 ML IV ONE
[2023-09-26 09:11] LABS: BASO % 0.2 % (0.0-1.0); EOS # 0.1 10^3/uL (0.0-0.5); HEMATOCRIT 38.4 % (42.0-52.0); HEMOGLOBIN 13.1 g/dl (13.5-17.5); LYMPH % 21.9 % (24.0-44.0); MEAN CORPUSCULAR HEMOGLOBIN 32.7 pg (27.0-33.0); MEAN CORPUSCULAR HGB CONC 34.1 g/dl (32.0-36.5); MEAN CORPUSCULAR VOLUME 95.8 fl (80.0-96.0); MONO # 0.8 10^3/uL (0.0-0.8); NEUTROPHILS # 6.1 10^3/uL (1.5-8.5); NEUTROPHILS % 67.5 % (36.0-66.0); PLATELET COUNT, AUTOMATED 236 10^3/uL (150-450); RED BLOOD COUNT 4.01 10^6/uL (4.30-6.10); WHITE BLOOD COUNT 9.1 10^3/uL (4.0-10.0)
[2023-09-26 09:36] LABS: ALBUMIN 3.3 G/DL (3.2-5.2); ALKALINE PHOSPHATASE 47 U/L (46-116); ALT/SGPT 10 U/L (7.0-40); AST/SGOT 11 U/L (<34); BILIRUBIN,TOTAL 0.4 MG/DL (0.3-1.2); BLOOD UREA NITROGEN 15 MG/DL (9-23); CALCIUM LEVEL 9.2 MG/DL (8.5-10.1); CARBON DIOXIDE LEVEL 30 MMOL/L (20-31); CHLORIDE LEVEL 101 MMOL/L (98-107); CHOLESTEROL LEVEL 154 MG/DL (<200); CREATININE FOR GFR 0.65 MG/DL (0.70-1.30); GLOMERULAR FILTRATION RATE > 60.0 (>56); GLUCOSE, FASTING 74 MG/DL (60-100); HDL CHOLESTEROL 59.1 MG/DL (>40); LDL CHOLESTEROL 78.3 MG/DL (<100); NON-HDL-C 94.9 MG/DL; POTASSIUM SERUM 5.1 MMOL/L (3.5-5.1); SODIUM LEVEL 132 MMOL/L (136-145); TOTAL PROTEIN 6.3 G/DL (5.7-8.2); TRIGLYCERIDES LEVEL 83 MG/DL (<150)
== END ==
LOC: M LAB 08:07
PROVIDERS: ATTEND Family Medicine
DX: E87.1 Hypo-osmolality and hyponatremia (principal); E78.00 Pure hypercholesterolemia, unspecified

== ENCOUNTER → 2024-02-13 | Outpatient (CLI) | payer MEDICARE, MEDICAID ==
[~2024-02-13] MED LIST changes: +NYST1POW3 TOP; -NYST1POW9 TOP
[2024-02-13 10:00] LABS: BASO % 0.1 % (0.0-1.0); EOS # 0.1 10^3/uL (0.0-0.5); EOS % 0.7 % (0.0-3.0); HEMOGLOBIN 12.8 g/dl (13.5-17.5); LYMPH # 1.8 10^3/uL (1.5-5.0); LYMPH % 17.9 % (24.0-44.0); MEAN CORPUSCULAR HEMOGLOBIN 31.1 pg (27.0-33.0); MEAN CORPUSCULAR HGB CONC 33.7 g/dl (32.0-36.5); MEAN CORPUSCULAR VOLUME 92.5 fl (80.0-96.0); MONO # 1.1 10^3/uL (0.0-0.8); MONO % 10.6 % (2.0-8.0); NEUTROPHILS # 7.1 10^3/uL (1.5-8.5); NEUTROPHILS % 70.3 % (36.0-66.0); PLATELET COUNT, AUTOMATED 260 10^3/uL (150-450); RED BLOOD COUNT 4.11 10^6/uL (4.30-6.10)
[2024-02-13 10:32] LABS: ALBUMIN 3.5 G/DL (3.2-5.2); ALKALINE PHOSPHATASE 56 U/L (40-129); ALT/SGPT 17 U/L (7.0-40); AST/SGOT 15 U/L (<34); BILIRUBIN,TOTAL 0.3 MG/DL (0.3-1.2); BLOOD UREA NITROGEN 15 MG/DL (9-23); CALCIUM LEVEL 9.7 MG/DL (8.5-10.1); CARBON DIOXIDE LEVEL 28 MMOL/L (20-31); CHLORIDE LEVEL 98 MMOL/L (98-107); CHOLESTEROL LEVEL 162 MG/DL (<200); CHOLESTEROL RISK RATIO 2.25 (<5); CREATININE FOR GFR 0.76 MG/DL (0.70-1.30); GLOMERULAR FILTRATION RATE > 60.0 (>56); GLUCOSE, FASTING 74 MG/DL (60-100); HDL CHOLESTEROL 71.7 MG/DL (>40); LDL CHOLESTEROL 77.3 MG/DL (<100); NON-HDL-C 90.3 MG/DL; POTASSIUM SERUM 5.1 MMOL/L (3.5-5.1); SODIUM LEVEL 130 MMOL/L (136-145); TRIGLYCERIDES LEVEL 65 MG/DL (<150)
[2024-02-13 10:33] LABS: THYROID STIMULATING HORMONE 2.439 uIU/ML (0.55-4.78)
== END ==
LOC: M WUC 08:14
PROVIDERS: ATTEND Family Medicine
DX: E87.1 Hypo-osmolality and hyponatremia (principal); E66.3 Overweight; E03.9 Hypothyroidism, unspecified; D53.9 Nutritional anemia, unspecified

== ENCOUNTER 2024-06-02 06:23 | Emergency (ER) | payer MEDICARE, MEDICAID ==
[~2024-06-02] VITALS: Ht 160 cm; Wt 75.4 kg
[2024-06-02 08:40] VITALS: TEMP 97.9
[2024-06-02] MEDS ORDERED: ACET-683 PO (09:26)
[2024-06-02] MEDS ORDERED: IBUP-1022 PO (09:26)
[2024-06-02 09:36] VITALS: BP 141/66; O2SAT 96
== END 2024-06-02 09:37 | disposition home or self-care (01) ==
LOC: M ED 06:23
DX: S43.122A Dislocation of left acromioclavicular joint, 100%-200% displacement, initial encounter (principal); Y92.9 Unspecified place or not applicable; Y93.9 Activity, unspecified; Y99.9 Unspecified external cause status; W06.XXXA Fall from bed, initial encounter; F70 Mild intellectual disabilities; Z79.1 Long term (current) use of non-steroidal anti-inflammatories (NSAID); Z79.899 Other long term (current) drug therapy

== ENCOUNTER → 2024-06-06 | Outpatient (CLI) | payer MEDICARE, MEDICAID ==
[~2024-06-06] MED LIST changes: +ACET-683 PO; +IBUP-1022 PO
== END ==
LOC: M WUC 10:12
PROVIDERS: ATTEND Physician Assistant
DX: R97.20 Elevated prostate specific antigen [PSA] (principal); S43.122A Dislocation of left acromioclavicular joint, 100%-200% displacement, initial encounter; Y92.9 Unspecified place or not applicable; Y93.9 Activity, unspecified; Y99.9 Unspecified external cause status

== ENCOUNTER → 2024-06-06 | Outpatient (CLI) | payer MEDICARE, MEDICAID | LOC: M SOG 07:49 | PROVIDERS: ATTEND Orthopaedic Surgery | DX: S43.122A Dislocation of left acromioclavicular joint, 100%-200% displacement, initial encounter (principal); Y92.9 Unspecified place or not applicable; Y93.9 Activity, unspecified ==

== ENCOUNTER → 2024-06-24 | Outpatient (CLI) | payer MEDICARE, MEDICAID | LOC: M RAD 07:40 | PROVIDERS: ATTEND Family Medicine | DX: Z87.891 Personal history of nicotine dependence (principal) ==

== ENCOUNTER → 2024-10-23 | Outpatient (CLI) | payer MEDICARE, MEDICAID ==
[~2024-10-23] MED LIST changes: +DIVA-41 PO; -DIVA500T94 PO; -FLOM0.4C39 PO; -IBUP-1022 PO; +IBUP600T42 PO; +TAMS-18 PO
== END ==
LOC: M SOG 06:57
PROVIDERS: ATTEND Orthopaedic Surgery
DX: S43.102A Unspecified dislocation of left acromioclavicular joint, initial encounter (principal); X58.XXXA Exposure to other specified factors, initial encounter; Y92.9 Unspecified place or not applicable; Y93.9 Activity, unspecified; Y99.9 Unspecified external cause status